=== PATIENT | male | born 1970 | race Two or more races ===

== ENCOUNTER 2022-04-03 11:20 | Emergency (ER) | payer MEDICAID, OTHER ==
[~2022-04-03] VITALS: Ht 170.2 cm; Wt 88.5 kg
[2022-04-03] MEDS ORDERED: ACETAMINOPHEN 500 MG TAB PO ONE (14:00)
[2022-04-03] MEDS ORDERED: LIDO5DIS21 TOP (14:42)
[2022-04-03 14:55] VITALS: BP 166/103
== END 2022-04-03 14:58 | disposition home or self-care (01) ==
LOC: ER 11:20
DX: S30.0XXA Contusion of lower back and pelvis, initial encounter (principal); I10 Essential (primary) hypertension; Z79.899 Other long term (current) drug therapy; Z88.1 Allergy status to other antibiotic agents; W18.39XA Other fall on same level, initial encounter; Y93.89 Activity, other specified; Y92.89 Other specified places as the place of occurrence of the external cause; Y99.8 Other external cause status
CPT/HCPCS: 72100; 93005